=== PATIENT | female | born 1965 | race Two or more races ===

== ENCOUNTER → 2020-11-08 | Outpatient (CLI) | payer OTHER ==
--- NOTE | 2020-11-08 10:56 | RAD ---
INDICATION: Reason: pelvic pain / Spl. Instructions: / History: COMPARISON: None. TECHNIQUE: Grayscale and color ultrasound images uterus and adnexa. Transabdominal and transvaginal images obtained. Transvaginal images were needed to better visualize structures that were limited on transabdominal imaging. FINDINGS: Uterus: 61 x 26 x 24 mm. There is a suspected heterogenous solid mass measuring up to 28 mm. This is seen within the posterior aspect of the uterus. There are additional suspected heterogenous masses within the myometrium. Port ions of the uterus as well as the endometrial stripe or not well seen secondary to overlying structur es obscuring Ovaries are obscured by bowel gas. IMPRESSION: * Multiple solid-appearing masses are seen within the uterus which are most commonly secondary to f ibroid. Portions of the uterus are not well seen secondary to overlying structures obscuring. Electronically signed by: Reddy Melendez MD (11/08/2020 10:54 AM) [id number]
== END ==
LOC: US 08:11
PROVIDERS: ATTEND Family Medicine
DX: N85.9 Noninflammatory disorder of uterus, unspecified (principal); R94.5 Abnormal results of liver function studies
CPT/HCPCS: 76830; 76856